=== PATIENT | male | born 1965 | race Caucasian/White ===

== ENCOUNTER 2019-07-18 08:14 | Emergency (ER) | payer OTHER ==
[~2019-07-18] VITALS: Ht 180.3 cm; Wt 108.9 kg
[2019-07-18 08:25] VITALS: BP 158/105
[2019-07-18] MEDS ORDERED: LIDOCAINE 1% HCL (LOCAL ANESTH.) INJ 20ML MDV ID ONE (08:45)
[2019-07-18] MEDS ORDERED: KETOROLAC TROMETH 60MG/2ML VIAL IM ONE (08:45)
== END 2019-07-18 09:19 | disposition home or self-care (01) ==
LOC: ER 08:14
DX: K61.0 Anal abscess (principal)
CPT/HCPCS: 46050; 96372; 99284; J1885; J2001